=== PATIENT | male | born 1975 | race Caucasian/White ===

== ENCOUNTER 2016-10-07 20:23 | Emergency (ER) | payer OTHER ==
[2016-10-07] MEDS ORDERED: LET GEL TOPICAL 1 EA SYR TP ONE (21:06)
[2016-10-07] MEDS ORDERED: TDAP ADULT 0.5 ML INJ (BOOSTRIX) IM ONE (22:22)
--- NOTE | 2016-10-07 22:26 | EDPHY ---
H & P Time Seen by Provider: 10/07/16 21:57 HPI/ROS: CHIEF COMPLAINT: Right knee laceration HISTORY OF PRESENT ILLNESS: This is a 41-year-old male presenting to the emergency department complaining of right knee pain with laceration. Patient states he was hiking around 1630 tripped on the ground fell landing on right knee, patient was able to get up [place] and clean out the wound concerned he might need stitches. Denies any LOC any dizziness or headache REVIEW OF SYSTEMS: Constitutional: No fever, no chills. Eyes: No discharge. No blurred vision Cardiovascular: No chest pain, no palpitations. Respiratory: No cough, no shortness of breath. Gastrointestinal: No abdominal pain, no vomiting. Musculoskeletal: No back pain. Right knee pain with laceration Skin: No rashes. Abrasions Neurological: No headache. No dizziness Smoking Status: Former smoker Physical Exam: General Appearance: Alert, no distress. Eyes: PERRLA no pallor or injection. ENT, Mouth: Mucous membranes moist. No injuries, no malocclusion Respiratory: There are no retractions, nonlabored respiratory effort Cardiovascular: Regular rate and rhythm. Gastrointestinal: Abdomen is soft and nontender, no injuries noted Neurological: No focal deficits Skin: Warm and dry. Multiple abrasions noted to bilateral lower extremities Musculoskeletal: Vertebral cervical spine nontender on palpation full range of motion. Multiple abrasions bilateral extremities. 2.5 cm on right knee full range of motion no obvious deformities. positive CMS intact Extremities: symmetrical, full range of motion. Multiple abrasions bilateral extremities. 2.5 cm on right knee full range of motion no obvious deformities. positive CMS intact Psychiatric: Patient is oriented X 3, there is no agitation. Constitutional: Initial Vital Signs Heart Rate 69 10/07/16 20:26 Respiratory Rate 16 10/07/16 20:26 Blood Pressure 132/68 H 10/07/16 20:26 O2 Sat (%) 98 10/07/16 20:26 O2 Delivery Mode Room Air Allergies/Adverse Reactions: No Known Allergies Allergy (Unverified 10/07/16 20:25) Home Medications: Medication Instructions Recorded NK [No Known Home Meds] 10/07/16 Medical Decision Making Procedures: Procedure: Laceration repair. Verbal consent was obtained from the patient. 2.5cm laceration below right knee. 0.5% bupivacaine with epi 3 mL local infiltrate. The wound was irrigated. There were no deep structures involved. The wound was repaired 4-0 Prolene #4 sutures placed. The procedure was performed by myself. A dressing was applied by our EMT. ED Course/Re-evaluation: Discussed the plan of care: Wound irrigation, tetanus given, laceration repair 2250: Discussed discharge instructions with patient, discharge---> stable. Differential Diagnosis: Other differential diagnosis considered but not limited to patellar fracture, foreign body, and skin infection - Data Points Medications Given: Discontinued Medications Diphtheria/Tetanus/Acell Pertussis (Boostrix) 0.5 ml IM .ONCE ONE Stop: 10/07/16 22:23 Last Admin: 10/07/16 22:25 Dose: 0.5 ml Tetracaine/Epinephrine/Lidocaine (Let Gel Topical) 1 ea TP EDNOW ONE Stop: 10/07/16 21:07 Last Admin: 10/07/16 21:08 Dose: 1 ea Departure - Departure Disposition: Home, Routine, Self-Care Clinical Impression: Laceration, Abrasions of multiple sites Condition: Good Instructions: Care For Your Stitches (ED), Laceration (ED), Abrasion (ED) Additional Instructions: Discussed discharge instruction 1. Have sutures removed in 10 days 2. Monitor for any signs of infection, such as: redness, red streaks, drainage , or swelling. 3. You were given a tetanus shot here in the ED 4. No robb water/river water exposure as this can increase chances of wound infection 5. Ibuprofen 600-800mg every 6-8 hours as needed for pain. Referrals: UNKNOWN,PCP [Other] - As per Instructions [facility],. [Clinic] - As per Instructions
[2016-10-07 22:57] VITALS: BP 120/57; PULSE 70; RESP 14; O2SAT 95
== END 2016-10-07 22:58 | disposition home or self-care (01) ==
PROC: 0HQKXZZ Repair Right Lower Leg Skin, External Approach (ICD-10-PCS; principal; 2016-10-07)
DX: S81.011A Laceration without foreign body, right knee, initial encounter (principal); S80.811A Abrasion, right lower leg, initial encounter; S80.812A Abrasion, left lower leg, initial encounter; Z87.891 Personal history of nicotine dependence; Z23 Encounter for immunization; W01.0XXA Fall on same level from slipping, tripping and stumbling without subsequent striking against object, initial encounter; Y99.8 Other external cause status; Y93.01 Activity, walking, marching and hiking